=== PATIENT | female | born 1980 | race Caucasian/White ===

== ENCOUNTER 2016-07-09 02:10 | Inpatient (IN) | payer BC ==
[2016-07-09 02:55] LABS: Hematocrit 42 % (35-47); Hemoglobin 14.7 g/dl (12.0-16.0); Mean Corpuscular HGB Conc 35 g/dl (31-36); Mean Corpuscular Hemoglobin 33 pg (27-31); Mean Corpuscular Volume 95 fL (80-97); Mean Platelet Volume 10 um3 (7.4-10.4); Red Blood Count 4.43 10^6/ul (4.0-5.4); Red Cell Distribution Width 12 % (10.5-15); White Blood Count 10.1 10^3/ul (3.5-10.8)
[2016-07-09] MEDS ORDERED: OBEPIDURAL* 0 ML ONE (02:55)
[2016-07-09] MEDS ORDERED: Vancomycin(*) 1,000 MG in NS 0.9% 250 ML* 250 ML IVPB SCH (03:00)
[2016-07-09] MEDS ORDERED: Oxytocin in LR* 20 UNITS/1,000 ML BAG IVPB ONE (03:25)
[2016-07-09] MEDS ORDERED: Witch Hazel PAD* JAR TOPICAL PRN (03:52)
[2016-07-09] MEDS ORDERED: Dibucaine 1% 28.35 GM TUBE PR PRN (03:52)
[2016-07-09] MEDS ORDERED: Glycerin ADULT SUPP PR PRN (03:52)
[2016-07-09] MEDS ORDERED: Acetaminophen TAB* 325 MG PO PRN (03:52)
[2016-07-09] MEDS ORDERED: Oxytocin in LR* 20 UNITS/1,000 ML BAG IVPB SCH (04:00)
[2016-07-09] MEDS: Ibuprofen TAB* 600 MG PO PRN ×4 (04:51→22:49)
[2016-07-09] MEDS: Simethicone TAB* 80 MG TAB.CHEW PO SCH (13:06)
[2016-07-09] MEDS: Docusate CAP* 100 MG PO SCH ×3 (13:06→20:12)
[2016-07-10 06:46] LABS: Hematocrit 37 % (35-47); Hemoglobin 12.9 g/dl (12.0-16.0); Mean Corpuscular HGB Conc 35 g/dl (31-36); Mean Corpuscular Hemoglobin 34 pg (27-31); Mean Corpuscular Volume 97 fL (80-97); Mean Platelet Volume 10 um3 (7.4-10.4); Red Blood Count 3.86 10^6/ul (4.0-5.4); Red Cell Distribution Width 13 % (10.5-15); White Blood Count 7.2 10^3/ul (3.5-10.8)
[2016-07-10] MEDS: Docusate CAP* 100 MG PO SCH ×3 (08:11→20:08)
[2016-07-10] MEDS: Ibuprofen TAB* 600 MG PO PRN ×2 (08:12→20:08)
[2016-07-10] MEDS ORDERED: Ferrous Gluconate TAB* 324 MG TAB PO SCH (09:00)
--- NOTE | 2016-07-10 09:34 | PTEDU ---
Patient Name: JORDANA GOMEZ JORDANA GOMEZ selected video: Follow Me Mum: [employer] to view on 0 07/10/2016 at 9:33:07 AM from [email or web address]
[2016-07-10] MEDS: Simethicone TAB* 80 MG TAB.CHEW PO SCH (10:16)
[2016-07-11 08:25] VITALS: BP 122/71
[2016-07-11] MEDS: Ibuprofen TAB* 600 MG PO PRN (10:15)
[2016-07-11] MEDS: Docusate CAP* 100 MG PO SCH ×2 (10:15→14:00)
--- NOTE | 2016-07-11 19:30 | PTEDU ---
Patient Name: JORDANA GOMEZ JORDANA GOMEZ selected video: Never Ever Shake a Baby to view on 07/11/2016 at 7:27:56 PM jailyn johnson [id number]
== END 2016-07-11 20:53 | disposition home or self-care (01) | DRG 560 ==
LOC: MCHOBOUT 02:10 → MCHOB 02:36
PROVIDERS: ADMIT Obstetrics & Gynecology; ATTEND Obstetrics & Gynecology
PROC: 10E0XZZ Delivery of Products of Conception, External Approach (ICD-10-PCS; principal; 2016-07-09)
PROC: 0KQM0ZZ Repair Perineum Muscle, Open Approach (ICD-10-PCS; 2016-07-09)
DX: O48.0 Post-term pregnancy (principal); D68.1 Hereditary factor XI deficiency; O99.12 Other diseases of the blood and blood-forming organs and certain disorders involving the immune mechanism complicating childbirth; O99.824 Streptococcus B carrier state complicating childbirth; O70.1 Second degree perineal laceration during delivery; Z3A.40 40 weeks gestation of pregnancy; O09.523 Supervision of elderly multigravida, third trimester; Z37.0 Single live birth
CPT/HCPCS: 36415; 85025; 85027; 85610; 85730; 86850; 86900; 86901; A9270-GY; J3370